=== PATIENT | male | born 1965 | race Caucasian/White ===

== ENCOUNTER 2016-09-17 07:16 | Day surgery (SDC) | payer MEDICARE, OTHER ==
--- NOTE | ~2016-09-17 | EGD ---
EGD REPORT [facility] [address] [place] [address] NAME: MAREK CAMPOS : 65 STATUS : [facility] [place] PAT#: [id number] AGE: 51 ADM/REG DATE : 09/17/16 MR#: [id number] REPORT SERV DATE: 09/17/16 DICTATED BY: BELINDA AUSTIN DATE: 09/17/16 REPORT STATUS : Draft TRANSCRIBED BY: [email or web address] DATE: 09/17/16 Endoscopy Center Patient Name: Marek Camops Date of : 1965 Attending MD: BELINDA AUSTIN MD Procedure Date No Time: 09/17/2016 Procedure: Upper GI endoscopy Indications: Follow-up of reflux esophagitis, Exclusion of celiac disease, Multiple episodes of aspiration pneumonia Referring MD: ARABELLA POOLE MD, WOODY STEVEN Medicines: Propofol per Anesthesia Complications: No immediate complications. Estimated blood loss: None. Procedure: Pre-Anesthesia Assessment: - After reviewing the risks and benefits, the patient was deemed in satisfactory condition to undergo the procedure. - Prior to the procedure, a History and Physical was performed, and patient medications and allergies were reviewed. The patient's tolerance of previous anesthesia was also reviewed. The risks and benefits of the procedure and the sedation options and risks were discussed with the patient. All questions were answered, and informed consent was obtained. Prior Anticoagulants: The patient has taken no previous anticoagulant or antiplatelet agents. ASA Grade Assessment: III - A patient with severe systemic disease. After reviewing the risks and benefits, the patient was deemed in satisfactory condition to undergo the procedure. After obtaining informed consent, the endoscope was passed under direct vision. Throughout the procedure, the patient's blood pressure, pulse, and oxygen saturations were monitored continuously. The GIF [id number] was introduced through the mouth, and advanced to the jejunum. The upper GI endoscopy was accomplished without difficulty. The patient tolerated the procedure well. Findings: Savary-Bull Grade II (multiple lesions and folds, noncircumferential, with or without confluence) esophagitis with no bleeding was found. The Z-line was irregular. Biopsies were taken with a cold forceps for histology. Estimated blood loss: none. Diffuse moderate inflammation characterized by erythema and granularity was found in the gastric antrum. Biopsies were taken with a cold forceps for histology. Estimated blood loss: none. EGD REPORT [address] [address] NAME: MAREK CAMPOS : [birth year] STATUS : [facility] [place] PAT#: [id number] AGE: 51 ADM/REG DATE : 09/17/16 MR#: [id number] REPORT SERV DATE: 09/17/16 DICTATED BY: BELINDA AUSTIN DATE: 09/17/16 REPORT STATUS : Draft TRANSCRIBED BY: [email or web address] DATE: 09/17/16 The gastroesophageal junction (on retroflexion) was normal. The examined duodenum was normal. Biopsies were taken with a cold forceps for histology. Estimated blood loss: none. Impression: - Savary-Bull Grade II reflux esophagitis. - Z-line irregular,. Biopsied. - Gastritis. Biopsied. - Normal gastroesophageal junction. - Normal examined duodenum. Biopsied. Recommendation: - Discharge patient to home (ambulatory). - Return to previous diet. - Continue present medications. - Begin Prevacid SoluTab 30 mg daily before breakfast. - Await pathology results. - Return to GI clinic PRN. - Patient has a contact number available for emergencies. The signs and symptoms of potential delayed complications were discussed with the patient. Return to normal activities tomorrow. Written discharge instructions were provided to the patient. Procedure Code(s): --- Professional --- 34699, Esophagogastroduodenoscopy, flexible, transoral; with biopsy, single or multiple Diagnosis Code(s): --- Professional --- K21.0, Gastro-esophageal reflux disease with esophagitis K22.8, Other specified diseases of esophagus K29.70, Gastritis, unspecified, without bleeding CPT copyright 2013 [employer]. All rights reserved. The codes documented in this report are preliminary and upon pre coder review may be revised to meet current compliance requirements. BELINDA AUSTIN MD 09/17/2016 9:17 AM This report has been signed electronically. Number of Addenda: 0 Note Initiated On: 09/17/2016 8:38 AM Scope Withdrawal Time 0 hours 0 minutes 0 seconds [address] [place] [id number]
[~2016-09-17 07:16] MED LIST: ACET500CAP PO; ALAVERT10 MG PO; EMETROL LIQ.1 ML PO; LEVAQUDL PO; MVIUDL PO; SYN075 PO; SYSTAN1 OPH; Z300 PO
== END 2016-09-17 23:59 | disposition home or self-care (01) ==
LOC: DMU 07:16
PROVIDERS: Internal Medicine Gastroenterology
PROC: 0DB98ZX Excision of Duodenum, Via Natural or Artificial Opening Endoscopic, Diagnostic (ICD-10-PCS; 2016-09-17)
PROC: 0DB68ZX Excision of Stomach, Via Natural or Artificial Opening Endoscopic, Diagnostic (ICD-10-PCS; 2016-09-17)
PROC: 0DB48ZX Excision of Esophagogastric Junction, Via Natural or Artificial Opening Endoscopic, Diagnostic (ICD-10-PCS; principal; 2016-09-17 08:45)
DX: K29.50 Unspecified chronic gastritis without bleeding (principal); K21.0 Gastro-esophageal reflux disease with esophagitis; Q90.9 Down syndrome, unspecified; E03.9 Hypothyroidism, unspecified; M10.9 Gout, unspecified; L40.9 Psoriasis, unspecified; G47.00 Insomnia, unspecified; Z87.01 Personal history of pneumonia (recurrent); Z88.0 Allergy status to penicillin; Z79.899 Other long term (current) drug therapy; Z98.890 Other specified postprocedural states
CPT/HCPCS: 88305; 88342